=== PATIENT | male | born 1970 | race American Indian/Alaskan Native ===

== ENCOUNTER 2017-12-10 05:48 | Emergency (ER) | payer SELFPAY ==
[2017-12-10 07:04] VITALS: BP 148/92
[2017-12-10 07:19] VITALS: PULSE 80; RESP 18; TEMP 98.1; O2SAT 99
== END 2017-12-10 07:18 | disposition left against medical advice (07) ==
LOC: MERGE 05:48 → ED 05:48
DX: Z02.89 Encounter for other administrative examinations (principal); F19.10 Other psychoactive substance abuse, uncomplicated